=== PATIENT | female | born 1950 | race Caucasian/White ===

== ENCOUNTER 2017-04-17 08:43 | Outpatient (CLI) | payer MEDICARE, OTHER | END 2017-04-17 08:44 | disposition home or self-care (01) | LOC: BICMAMMO 08:43 | PROVIDERS: ATTEND Family Medicine | DX: Z12.31 Encounter for screening mammogram for malignant neoplasm of breast (principal); Z80.3 Family history of malignant neoplasm of breast | CPT/HCPCS: 77063; 77067 ==

== ENCOUNTER 2017-10-24 14:21 | Outpatient (CLI) | payer MEDICARE, OTHER ==
[2017-10-24 15:30] LABS: #Basophils 0.1 thou/uL (0.0-0.2); #Eosinphils 0.2 thou/uL (0.0-0.7); #Lymphocytes 2.2 thou/uL (1.20-3.40); #Monocytes 0.5 thou/uL (0.11-0.59); #Neutrophils 3.2 thou/uL (1.40-6.50); %Basophils 1.1 % (0.0-1.0); %Eosinophils 2.6 % (0.0-10.0); %Lymphocytes 35.7 % (21.0-51.0); %Monocytes 8.3 % (0.0-10.0); %Neutrophils 52.3 % (42.0-75.0); Hemoglobin 14.2 g/dL (12.0-16.0); Mean Corpuscular Volume 88.6 fL (78.0-98.0); Mean Platelet Volume 8.5 fL (7.4-10.4); Platelet Count 221 thou/uL (130-400); RBC Distribution Width 11.9 % (11.5-14.5); Red Blood Cell (RBC) Count 4.58 mill/uL (4.20-5.40); White Blood Cell (WBC) Count 6.1 thou/uL (4.8-10.8)
[2017-10-24 15:49] LABS: Anion Gap 11 mmol/L (10-20); BUN (Urea Nitrogen) 14 mg/dL (9.8-20.1); Calc. Creatinine Clearance 0 mL/min (70-130); Calcium 9.5 mg/dL (7.8-10.44); Carbon Dioxide 27 mmol/L (23-31); Chloride 102 mmol/L (98-107); Estimated GFR-MDRD 79; Glucose 146 mg/dL (80-115); Sodium 136 mmol/L (136-145)
== END 2017-10-24 14:22 | disposition home or self-care (01) ==
LOC: LABBT 14:21
PROVIDERS: ATTEND Surgery
DX: Z01.812 Encounter for preprocedural laboratory examination (principal); K43.2 Incisional hernia without obstruction or gangrene
CPT/HCPCS: 80048; 85025; 93005; 93010

== ENCOUNTER 2017-10-28 10:22 | Day surgery (SDC) | payer MEDICARE, OTHER ==
[2017-10-24 14:35] VITALS: BMI 39.4
[2017-10-28] MEDS ORDERED: CEFAZOLIN/Water 2 GM/20 ML SYRINGE ONE (11:31)
[2017-10-28] MEDS ORDERED: Metoclopramide HCl 10 MG/2 ML VIAL ONE (14:23)
[2017-10-28] MEDS ORDERED: Dexamethasone 20 MG/5 ML VIAL ONE (14:23)
[2017-10-28] MEDS ORDERED: Glycopyrrolate 0.2 MG/ML 5 ML SYRINGE ONE (14:23)
[2017-10-28] MEDS ORDERED: Ondansetron HCl/PF 4 MG/2 ML Vial ONE (14:23)
[2017-10-28] MEDS ORDERED: Lidocaine 1% PF 5 ML VIAL ONE (14:23)
[2017-10-28] MEDS ORDERED: PROPOFOL 200 MG/20 ML VIAL ONE (14:23)
[2017-10-28] MEDS ORDERED: Bupivacaine HCl 0.25%/Epi 0.0005/PF 10 ML VIAL FS ONE ×2 (15:23)
[2017-10-28] MEDS ORDERED: Fentanyl 100 MCG/2 ML VIAL ONE ×2 (15:31→17:14)
--- NOTE | 2017-11-01 20:34 | OP ---
DATE OF PROCEDURE: 10/28/2017 PREOPERATIVE DIAGNOSIS: Incisional hernia. POSTOPERATIVE DIAGNOSIS: Incisional hernia. PROCEDURE: Robotic laparoscopic incisional hernia repair with mesh, Ventralight ST 8 cm. SURGEON: Alex Joyner M.D. ANESTHESIA: General. ESTIMATED BLOOD LOSS: Minimal. COMPLICATIONS: None. SPECIMEN: None. FINDINGS: A 3 cm defect. TECHNIQUE: The patient was taken to the operating room and placed supine on the table. After genera l anesthetic was obtained, a Martínez was placed. The abdomen was prepped and draped in a sterile fashi on. Left subcostal 5-mm Optiview trocar was placed in the usual fashion without injury and high-flow pneumoperitoneum was obtained. Left and right abdominal 8 mm robot trocars were placed under direct visualization. The 5 mm subcostal ports, then switched out to 11 balloon applied medical port. An 8 cm round Ventralight mesh and 0 V-Loc and a 2-0 V-Loc are placed in the abdomen through the camera port. All ports were then docked to the robot. The surgeon goes to the console. All adhesions were taken down as well as the peritoneum to the posterior abdominal wall in the area of the hernia. The hernia was closed using running 0 Vicryl. After the fascial defect was completely closed, this need le from the 0 V-Loc is used to hold up the Ventralight mesh and centered over the closure. The two V -Loc is then used to sew circumferentially starting at 3 o' clock counterclockwise all the way around the mesh. The one suture is able to completely sew all the way around the mesh. The mesh completel y covers the defect, it is flat. The nonadherent surface is left down. The exposed mesh side was pl aced up against the fascia. All port sites were infiltrated using local anesthetic. All ports were removed under camera visualization. Pneumoperitoneum was let down. A 4-0 Monocryl and Dermabond wer e used to close all skin incisions. Patient was en route to recovery in stable condition. All instr ument counts, needle counts, lap counts were correct.
== END 2017-10-28 18:58 | disposition home or self-care (01) ==
LOC: SDC 10:22
PROVIDERS: ATTEND Surgery
PROC: 0WUF4JZ Supplement Abdominal Wall with Synthetic Substitute, Percutaneous Endoscopic Approach (ICD-10-PCS; principal; 2017-10-28)
DX: K43.2 Incisional hernia without obstruction or gangrene (principal); M19.90 Unspecified osteoarthritis, unspecified site; Z79.899 Other long term (current) drug therapy; Z87.891 Personal history of nicotine dependence; Z88.2 Allergy status to sulfonamides; Z88.1 Allergy status to other antibiotic agents; Z79.82 Long term (current) use of aspirin
CPT/HCPCS: 49654; 96374; C1781; J1100; J2001; J2405; J2704; J2765; J3010

== ENCOUNTER 2020-02-09 13:18 | Outpatient (CLI) | payer MEDICARE, OTHER ==
--- NOTE | 2020-02-10 08:56 | MMO ---
Bilateral MAMMO Bilat Screen [facility]. CLINICAL HISTORY: Patient is 69 years old and is seen for screening. The patient has the following family history of breast cancer: sister. The patient has no personal history of cancer. VIEWS: The views performed were: bilateral craniocaudal with tomosynthesis and bilateral mediolateral oblique with tomosynthesis. FILMS COMPARED: The present examination has been compared to prior imaging studies performed at [facility] on 04/17/2017, at [facility] on 03/07/2009 and 11/13/2013, and at [facility] on 11/19/2013. This study has been interpreted with the assistance of computer-aided detection. MAMMOGRAM FINDINGS: There are scattered fibroglandular densities. There are no suspicious masses, suspicious calcifications, or new areas of architectural distortion. IMPRESSION: THERE IS NO MAMMOGRAPHIC EVIDENCE OF MALIGNANCY. A ROUTINE FOLLOW-UP MAMMOGRAM IN 1 YEAR IS RECOMMENDED. THE RESULTS OF THIS EXAM WERE SENT TO THE PATIENT. ACR BI-RADS Category 1 - Negative MAMMOGRAPHY NOTE: 1. A negative mammogram report should not delay a biopsy if a dominant of clinically suspicious mass is present. 2. Approximately 10% to 15% of breast cancers are not detected by mammography. 3. Adenosis and dense breasts may obscure an underlying neoplasm. Reported by: HIEN THOMAS MD Electonically Signed: [id number]
== END 2020-02-09 13:19 | disposition home or self-care (01) ==
LOC: BICMAMMO 13:18
PROVIDERS: ATTEND Family Medicine
DX: Z12.31 Encounter for screening mammogram for malignant neoplasm of breast (principal); Z80.3 Family history of malignant neoplasm of breast
CPT/HCPCS: 77063; 77067

== ENCOUNTER 2021-08-22 14:03 | Outpatient (CLI) | payer MEDICARE, OTHER | END 2021-08-22 14:04 | disposition home or self-care (01) | LOC: BICMAMMO 14:03 | PROVIDERS: ATTEND Family Medicine | DX: Z12.31 Encounter for screening mammogram for malignant neoplasm of breast (principal); Z80.3 Family history of malignant neoplasm of breast | CPT/HCPCS: 77063; 77067 ==

== ENCOUNTER 2022-08-06 08:13 | Inpatient (IN) | payer MEDICARE, OTHER ==
[2022-08-06] MEDS ORDERED: HYDROcodone/Acetaminophen 10/325 mg Tablet ONE (10:48)
[2022-08-06] MEDS ORDERED: Ibuprofen 200 MG TAB ONE (10:49)
[2022-08-06 12:15] LABS: Bacteria/HPF 4+ HPF (None Seen); Bilirubin Negative (Negative); Blood, Urine Negative (Negative); Clarity Clear (Clear); Glucose, Urine (Dipstick) Normal (Negative); Ketone, Urine Negative (Negative); Leukocyte 250 Leu/uL (Negative); Nitrite 1+ (Negative); Protein, Urine (Dipstick) Negative (Neg-Trace); RBC/HPF 0-3 HPF (0-3); Specific Gravity, Urine 1.018 (1.002-1.036); Squamous Epithelial 0-3 HPF (0-3); Urobilinogen Normal mg/dL (Less than 2)
[2022-08-06] MEDS ORDERED: CEFAZOLIN 2 GM in Sodium Chloride 0.9% 100 ML IVPB SCH (12:15)
[2022-08-06] MEDS ORDERED: cefTRIAXone (ROCEPHIN) 1 GM VIAL ONE (12:34)
[2022-08-06 12:46] LABS: #Basophils 0.1 thou/uL (0.0-0.2); #Lymphocytes 1.3 thou/uL (1.20-3.40); #Monocytes 0.4 thou/uL (0.11-0.59); #Neutrophils 5.8 thou/uL (1.40-6.50); %Basophils 0.8 % (0.0-1.0); %Eosinophils 0.5 % (0.0-10.0); %Lymphocytes 17.2 % (21.0-51.0); %Monocytes 5.5 % (0.0-10.0); Hemoglobin 13.3 g/dL (12.0-16.0); Mean Corpuscular HGB CONC 33.3 g/dL (32.0-36.0); Mean Corpuscular Hemoglobin 29.8 pg (27.0-31.0); Mean Corpuscular Volume 89.5 fl (78.0-98.0); Mean Platelet Volume 8.8 fL (7.4-10.4); Platelet Count 183 10x3/uL (130-400); RBC Distribution Width 11.8 % (11.5-14.5); Red Blood Cell (RBC) Count 4.47 mill/uL (4.20-5.40); White Blood Cell (WBC) Count 7.7 10x3/uL (4.8-10.8)
[2022-08-06 13:10] LABS: ALT (SGPT) 14 U/L (8-55); AST (SGOT) 15 U/L (5-34); Albumin 3.6 g/dL (3.4-4.8); Alkaline Phosphatase 83 U/L (40-110); Anion Gap 13 mmol/L (10-20); BUN (Urea Nitrogen) 9 mg/dL (9.8-20.1); Bilirubin, Total 0.5 mg/dL (0.2-1.2); Calc. Creatinine Clearance 0 mL/min (70-130); Calcium 8.9 mg/dL (7.8-10.44); Carbon Dioxide 23 mmol/L (23-31); Chloride 104 mmol/L (98-107); Estimated GFR 93; Globulin 2.6 g/dL (2.4-3.5); Glucose 144 mg/dL (83-110); Lipase 4 U/L (8-78); Potassium 4.1 mmol/L (3.5-5.1); Protein, Total 6.2 g/dL (5.8-8.1); Sodium 136 mmol/L (136-145)
[2022-08-06] MEDS ORDERED: Morphine 4 MG/ML VIAL ONE (13:16)
[2022-08-06 13:20] LABS: PTT 26.1 sec (22.9-36.1); Prothrombin Time 13.9 sec (12.0-14.7)
[2022-08-06] MEDS ORDERED: traMADol HCl 50 MG TAB PO PRN (13:27)
[2022-08-06] MEDS ORDERED: Ondansetron PF 4 MG/2 ML Vial IVP PRN (13:27)
[2022-08-06] MEDS ORDERED: Morphine 2 MG/ML VIAL SLOW IVP PRN (13:27)
[2022-08-06] MEDS ORDERED: hydrALAZINE 20 MG/ML VIAL SLOW IVP PRN (13:27)
[2022-08-06] MEDS ORDERED: Ondansetron ODT 4 MG TAB PO PRN (13:27)
[2022-08-06] MEDS ORDERED: Insulin Regular 300 UNITS/3 ML VIAL SC PRN ×2 (13:27)
[2022-08-06] MEDS ORDERED: Dextrose 5% in Water 1,000 ML IV PRN (13:27)
[2022-08-06] MEDS ORDERED: Dextrose 50% Abboject 50 ML SYRINGE SLOW IVP PRN (13:27)
[2022-08-06] MEDS ORDERED: Ibuprofen 200 MG TAB PO PRN (13:43)
[2022-08-06] MEDS ORDERED: Ipratropium Bromide 2.5 ml Neb NEB PRN (13:46)
[2022-08-06] MEDS ORDERED: traMADol HCl 50 MG TAB ONE (19:56)
[2022-08-06] MEDS ORDERED: Acetaminophen 500 MG TAB ONE (19:57)
[2022-08-06] MEDS: traMADol HCl 50 MG TAB PO PRN (20:00)
[2022-08-06] MEDS: Acetaminophen 500 MG TAB PO SCH (20:00)
[2022-08-06] MEDS ORDERED: Ondansetron ODT 4 MG TAB ONE (21:03)
[2022-08-06] MEDS ORDERED: Famotidine 20 MG TAB ONE (21:03)
[2022-08-06] MEDS: Famotidine 20 MG TAB PO SCH (21:08)
[2022-08-06] MEDS: Senokot S 8.6-50 MG TAB PO SCH (21:42)
[2022-08-06 22:42] VITALS: BMI 37.0
[2022-08-06] MEDS ORDERED: Sodium Chloride 0.9% 1,000 ML IV SCH (23:55)
[2022-08-07] MEDS: Acetaminophen 500 MG TAB PO SCH ×5 (00:23→23:19)
[2022-08-07 07:01] LABS: #Basophils 0.1 thou/uL (0.0-0.2); #Eosinphils 0.2 thou/uL (0.0-0.7); #Lymphocytes 2.1 thou/uL (1.20-3.40); #Monocytes 0.7 thou/uL (0.11-0.59); #Neutrophils 4.8 thou/uL (1.40-6.50); %Basophils 1.1 % (0.0-1.0); %Lymphocytes 27.2 % (21.0-51.0); %Monocytes 8.6 % (0.0-10.0); Hemoglobin 12.2 g/dL (12.0-16.0); Mean Corpuscular HGB CONC 33.8 g/dL (32.0-36.0); Mean Corpuscular Hemoglobin 30.4 pg (27.0-31.0); Mean Corpuscular Volume 89.9 fl (78.0-98.0); Mean Platelet Volume 9.2 fL (7.4-10.4); Platelet Count 188 10x3/uL (130-400); RBC Distribution Width 11.9 % (11.5-14.5); Red Blood Cell (RBC) Count 4.03 mill/uL (4.20-5.40); White Blood Cell (WBC) Count 7.8 10x3/uL (4.8-10.8)
[2022-08-07 07:22] LABS: Anion Gap 11 mmol/L (10-20); BUN (Urea Nitrogen) 11 mg/dL (9.8-20.1); Calc. Creatinine Clearance 105 mL/min (70-130); Calcium 8.8 mg/dL (7.8-10.44); Carbon Dioxide 23 mmol/L (23-31); Chloride 103 mmol/L (98-107); Estimated GFR 92; Glucose 112 mg/dL (83-110); Magnesium 1.8 mg/dL (1.6-2.6); Phosphorus 3.6 mg/dL (2.3-4.7); Potassium 4.1 mmol/L (3.5-5.1); Sodium 133 mmol/L (136-145)
[2022-08-07] MEDS: Famotidine 20 MG TAB PO SCH ×2 (09:20→20:38)
[2022-08-07] MEDS: Senokot S 8.6-50 MG TAB PO SCH ×2 (09:32→20:38)
[2022-08-07] MEDS: Polyethylene Glycol 3350 17 GM Packet PO SCH (09:32)
[2022-08-07] MEDS: traMADol HCl 50 MG TAB PO PRN (09:41)
[2022-08-07] MEDS ORDERED: cefTRIAXone\\ROCEPHIN 2 GM in Sodium Chloride 0.9% 100 ML IVPB SCH (13:00)
[2022-08-07] MEDS ORDERED: Famotidine/PF 20 mg/2ml Vial ONE (13:30)
[2022-08-07] MEDS ORDERED: fentaNYL PF 100 MCG/2 ML SYRINGE ONE (13:30)
[2022-08-07] MEDS ORDERED: Lidocaine 1% PF 5 ML VIAL ONE (13:45)
[2022-08-07] MEDS ORDERED: Dexamethasone 20 MG/5 ML VIAL ONE (13:45)
[2022-08-07] MEDS ORDERED: Ondansetron PF 4 MG/2 ML Vial ONE (13:45)
[2022-08-07] MEDS ORDERED: PROPOFOL 200 MG/20 ML VIAL ONE (13:45)
[2022-08-07] MEDS ORDERED: Glycopyrrolate 0.2 MG/ML 5 ML SYRINGE ONE (13:45)
[2022-08-07] MEDS ORDERED: Ondansetron HCl/PF 4 MG/2 ML Vial IVP PRN (14:12)
[2022-08-07] MEDS ORDERED: Promethazine HCl 25 MG/ML VIAL IM PRN (14:12)
[2022-08-07] MEDS ORDERED: fentaNYL 50 mcg/mL 1 mL Vial ONE (15:02)
[2022-08-07] MEDS: CEFAZOLIN 2 GM in Sodium Chloride 0.9% 100 ML IVPB SCH (20:45)
[2022-08-08] MEDS: CEFAZOLIN 2 GM in Sodium Chloride 0.9% 100 ML IVPB SCH (05:48)
[2022-08-08] MEDS: Acetaminophen 500 MG TAB PO SCH ×2 (05:50→12:39)
[2022-08-08] MEDS: Senokot S 8.6-50 MG TAB PO SCH (08:36)
[2022-08-08] MEDS: Famotidine 20 MG TAB PO SCH (08:36)
[2022-08-08] MEDS: Polyethylene Glycol 3350 17 GM Packet PO SCH (08:36)
[2022-08-08 12:45] VITALS: BP 129/62; TEMP 97.8
[2022-08-09] MEDS ORDERED: Cefdinir 300 MG CAP PO SCH (09:00)
== END 2022-08-08 14:43 | disposition home or self-care (01) | DRG 511 ==
LOC: ERS 08:13 → ERHOLD 13:33 → SURG B 22:05
PROVIDERS: ADMIT Student in an Organized Health Care Education/Training Program; ATTEND Student in an Organized Health Care Education/Training Program
PROC: 0PSH04Z Reposition Right Radius with Internal Fixation Device, Open Approach (ICD-10-PCS; principal; 2022-08-07)
DX: S52.551A Other extraarticular fracture of lower end of right radius, initial encounter for closed fracture (principal); N39.0 Urinary tract infection, site not specified; E11.9 Type 2 diabetes mellitus without complications; C53.9 Malignant neoplasm of cervix uteri, unspecified; S59.091A Other physeal fracture of lower end of ulna, right arm, initial encounter for closed fracture; Z90.710 Acquired absence of both cervix and uterus; Z90.49 Acquired absence of other specified parts of digestive tract; Z90.89 Acquired absence of other organs; Z88.2 Allergy status to sulfonamides; Z79.82 Long term (current) use of aspirin; Z79.899 Other long term (current) drug therapy
CPT/HCPCS: 36415; 36416; 71045; 80048; 80053; 81003; 81015; 83690; 83735; 84100; 85025; 85610; 85730; 87077; 87086; 87186; 93005; C1713; J0696; J1100; J1815; J2270; J2272; J2405; J2704; J3010; J3490; J7050; Q0162; S0028

== ENCOUNTER 2022-11-30 12:30 | Outpatient (CLI) | payer MEDICARE, OTHER | END 2022-11-30 12:31 | disposition home or self-care (01) | LOC: BICMAMMO 12:30 | PROVIDERS: ATTEND Family Medicine | DX: Z12.31 Encounter for screening mammogram for malignant neoplasm of breast (principal); Z13.820 Encounter for screening for osteoporosis; N95.9 Unspecified menopausal and perimenopausal disorder; N64.89 Other specified disorders of breast; M85.89 Other specified disorders of bone density and structure, multiple sites; Z80.3 Family history of malignant neoplasm of breast | CPT/HCPCS: 77063; 77067; 77080 ==

== ENCOUNTER 2022-12-09 09:38 | Emergency (ER) | payer MEDICARE, OTHER ==
[2022-12-09] MEDS ORDERED: Boostrix 0.5 ML (Tdap) VIAL (>/=7 yrs of age) ONE (11:04)
== END 2022-12-09 12:13 | disposition home or self-care (01) ==
LOC: ERS 09:38
DX: S80.01XA Contusion of right knee, initial encounter (principal); E11.9 Type 2 diabetes mellitus without complications; W26.8XXA Contact with other sharp object(s), not elsewhere classified, initial encounter; Z79.82 Long term (current) use of aspirin; Z87.891 Personal history of nicotine dependence
CPT/HCPCS: 90471; 90715

== ENCOUNTER 2022-12-11 08:02 | Outpatient (CLI) | payer MEDICARE, OTHER | END 2022-12-11 08:03 | disposition home or self-care (01) | LOC: BICMAMMO 08:02 | PROVIDERS: ATTEND Family Medicine | DX: N64.89 Other specified disorders of breast (principal) | CPT/HCPCS: 76642; 77065; G0279 ==

== ENCOUNTER 2023-10-09 14:30 | Outpatient (CLI) | payer MEDICARE, OTHER | END 2023-10-09 14:31 | disposition home or self-care (01) | LOC: BICMAMMO 14:30 | PROVIDERS: ATTEND Family Medicine | DX: R92.8 Other abnormal and inconclusive findings on diagnostic imaging of breast (principal) | CPT/HCPCS: 76642; 77066; G0279 ==